=== PATIENT | male | born 1995 | race Caucasian/White ===

== ENCOUNTER → 2016-12-29 | Outpatient (CLI) | payer BC ==
[~2016-12-29] MED LIST: ADVIL MIGRAINE200 MG PO; ASPIR 8181 MG PO; CLARITIN10 MG PO; PERCOCET 5-3251 EACH PO; PHENERGAN 12.12.5 M1 PO; STOOL SOFTENER250 MG PO
== END ==
DX: Z01.818 Encounter for other preprocedural examination (principal); S83.512A Sprain of anterior cruciate ligament of left knee, initial encounter

== ENCOUNTER → 2017-01-01 | Day surgery (SDC) | payer BC | END | disposition home or self-care (01) | LOC: OR 06:30 | PROVIDERS: Orthopaedic Surgery | PROC: 0SBD4ZZ Excision of Left Knee Joint, Percutaneous Endoscopic Approach (ICD-10-PCS; 2017-01-01) | PROC: 0MUP47Z Supplement Left Knee Bursa and Ligament with Autologous Tissue Substitute, Percutaneous Endoscopic Approach (ICD-10-PCS; principal; 2017-01-01 07:30) | DX: S83.512A Sprain of anterior cruciate ligament of left knee, initial encounter (principal); Z90.89 Acquired absence of other organs; Z98.818 Other dental procedure status; Z79.899 Other long term (current) drug therapy; Z82.49 Family history of ischemic heart disease and other diseases of the circulatory system; Z83.49 Family history of other endocrine, nutritional and metabolic diseases; X58.XXXA Exposure to other specified factors, initial encounter; Y93.67 Activity, basketball | CPT/HCPCS: 73560; 76000; C1713; J0171; J0690; J1100; J2250; J2405; J2710; J2795; J3010; J7120 ==